=== PATIENT | male | born 1950 | race Caucasian/White ===

== ENCOUNTER 2019-12-28 11:15 | Emergency (ER) | payer MEDICARE, BC ==
[~2019-12-28] VITALS: Ht 175.3 cm; Wt 84.1 kg
[2019-12-28 13:12] VITALS: BP 147/86
== END 2019-12-28 13:13 | disposition home or self-care (01) ==
LOC: ER 11:15
DX: K42.9 Umbilical hernia without obstruction or gangrene (principal)
CPT/HCPCS: 74176; 99284

== ENCOUNTER 2021-07-11 12:47 | Emergency (ER) | payer MEDICARE, BC ==
[~2021-07-11] VITALS: Ht 175.3 cm; Wt 81.8 kg
[2021-07-11 12:52] VITALS: BP 165/102
[2021-07-11] MEDS ORDERED: normal saline 1000ML IV soln IVB ONE (17:20)
[2021-07-11] MEDS ORDERED: morphine 4 MG/ML inj SYRINge IV ONE (17:20)
[2021-07-11] MEDS ORDERED: propofol 10mg/ml 20ml vial IV ONE (17:20)
[2021-07-11] MEDS ORDERED: LIDOcaine 1% 30ml preserv. free vial SQ STA (17:40)
[2021-07-11] MEDS ORDERED: HYDR-3965 PO (18:07)
--- NOTE | 2021-07-11 18:10 | NUR ---
DR DEE AT BEDSIDE ORDERS TO JOINT BLOCK PATIENT INSTEAD OF CONSCIOUS SEDATE
== END 2021-07-11 19:05 | disposition home or self-care (01) ==
LOC: ER 12:47
DX: S82.62XA Displaced fracture of lateral malleolus of left fibula, initial encounter for closed fracture (principal); M25.572 Pain in left ankle and joints of left foot; Z72.89 Other problems related to lifestyle; Z79.899 Other long term (current) drug therapy; W01.0XXA Fall on same level from slipping, tripping and stumbling without subsequent striking against object, initial encounter; Y93.89 Activity, other specified; Y92.89 Other specified places as the place of occurrence of the external cause; Y99.8 Other external cause status
CPT/HCPCS: 27810; 73600; 73610; 96374; 99284; J2270; J3490; J7030